=== PATIENT | male | born 1940 | race Caucasian/White ===

== ENCOUNTER → 2016-07-14 | Outpatient (CLI) | payer MEDICARE, OTHER | END | disposition home or self-care (01) | LOC: GMAL 17:25 | PROVIDERS: ATTEND Family Medicine | DX: M25.542 Pain in joints of left hand (principal) ==

== ENCOUNTER → 2016-09-09 | Outpatient (CLI) | payer MEDICARE, OTHER | END | disposition home or self-care (01) | LOC: GMAL 10:41 | PROVIDERS: ATTEND Family Medicine | DX: D51.3 Other dietary vitamin B12 deficiency anemia (principal); Z12.5 Encounter for screening for malignant neoplasm of prostate; E55.9 Vitamin D deficiency, unspecified | CPT/HCPCS: 82306; 82607; G0103 ==

== ENCOUNTER → 2017-03-17 | Outpatient (CLI) | payer MEDICARE, OTHER | END | disposition home or self-care (01) | LOC: GMAL 11:59 | PROVIDERS: ATTEND Family Medicine | DX: N41.0 Acute prostatitis (principal); N41.9 Inflammatory disease of prostate, unspecified ==

== ENCOUNTER → 2018-05-03 | Outpatient (CLI) | payer MEDICARE, OTHER | LOC: GMAL 11:44 | PROVIDERS: ATTEND Family Medicine | DX: D51.3 Other dietary vitamin B12 deficiency anemia (principal); E55.9 Vitamin D deficiency, unspecified; Z12.5 Encounter for screening for malignant neoplasm of prostate | CPT/HCPCS: 82306; 82607; G0103 ==

== ENCOUNTER → 2018-08-04 | Outpatient (CLI) | payer MEDICARE, OTHER ==
--- NOTE | 2018-08-04 16:25 | CT ---
EXAM DESCRIPTION: Soft Tissue Neck w/Contrast CLINICAL HISTORY: LOCALIZED SWELLING, MASS AND LUMP, NECK COMPARISON: None. TECHNIQUE: Postcontrast CT images of the neck are obtained with coronal and sagittal reconstructed images. A marker is placed over the area of palpable abnormality. This exam was performed according to our departmental dose-optimization program, which includes automated exposure control, adjustment of the mA and/or kV according to patient size and/or use of iterative reconstruction technique . FINDINGS: Marker is seen in the region of the right angle of the mandible. The tail of the parotid gland is seen below the marker placed on the right neck with no discrete focal mass or soft tissue abnormality. Mild calcifications of the intracranial carotid arteries are seen left greater than right with areas of mild narrowing. Intracranial structures are otherwise unremarkable. Soft tissue nodularity in the posterior nasopharyngeal region is seen with small right sphenoid sinus air-fluid level. Mild mucosal thickening is seen in the visualized ethmoid air cells with mild mucosal thickening in the maxillary sinuses. Mastoid air cells are unremarkable. Asymmetric soft tissue thickening deep to the right ankle the mandible in the posterior oropharynx is seen with loss of normal fat tissue plane adjacent to the mandible on the right compared to the left. No osseous abnormality. The patient is edentulous. Less than 1 cm right submental lymph nodes are seen. No pathologically enlarged submandibular or cervical chain lymphadenopathy is seen. The epiglottis and vocal cords are unremarkable. Thyroid is unremarkable. Mild scattered calcified plaque of the common carotid artery with moderate calcified plaque of the carotid bulb to proximal internal and external carotid arteries. Visualized lung apices show moderate centrilobular emphysematous changes. Posterior mildly spiculated soft tissue thickening in the left lung apex adjacent to the third rib measures 1.8 x 0.8 cm. Moderate to severe disc space narrowing from C3 through T1 is seen with mild to moderate facet hypertrophic and degenerative changes most significant on the right at C4-5 and left at C3-4. Anterolisthesis of C4 on C5 is seen. At least mild spinal canal stenosis from C4 through C7 is seen with multilevel foraminal encroachment most significant right greater than left at C5-6. IMPRESSION: No cystic or soft tissue mass is seen in the tail of the parotid gland below the marker placed on the right neck at the level of the angle of the mandible. Asymmetric soft tissue thickening and loss of fat tissue plane adjacent to the right mandible at the level of the angle of the mandible raises suspicion for mass or neoplastic process. Recommend correlation with direct visualization and physical exam findings in this region. A 1.8 x 0.8 cm pulmonary nodule in the left lung apex is seen. Neoplastic process is a consideration. Consider CT, PET/CT, or tissue sampling at 3 months. Moderate to severe emphysematous changes to the lung apices are seen. 2017 Fleischner Society Recommendations for Single Solid Lung Nodule Follow-Up based on size (average of long- and short-axis diameters) <6 mm Low-Risk Patient: No routine follow-up <6 mm High-Risk Patient: Optional CT at 12 months 6-8 mm Low-Risk Patient: CT at 6-[address] at 18-24 months 6-8 mm High-Risk Patient: CT at 6-[address] at 18-24 months >8 mm Low-Risk Patient: Consider CT, PET/CT or tissue sampling at 3 months >8 mm High-Risk Patient: Same as for low-risk patient Electronically signed by: Ze Stewart MD 08/04/2018 4:23 PM CDT
== END ==
LOC: CT 10:00
PROVIDERS: ATTEND Otolaryngology
DX: R22.1 Localized swelling, mass and lump, neck (principal); R91.1 Solitary pulmonary nodule; J43.9 Emphysema, unspecified

== ENCOUNTER → 2018-09-27 | Outpatient (CLI) | payer MEDICARE, OTHER ==
--- NOTE | 2018-09-27 16:38 | CT ---
EXAM DESCRIPTION: CT Chest without CONTRAST CLINICAL HISTORY: COPD, PULM EMPHYSEMA, SOLITARY NODULE 1.8 CM, SMOKER COMPARISON: None Available. TECHNIQUE: CT of the chest is performed without intravenous contrast FINDINGS: The thyroid gland is unremarkable. No axillary adenopathy. Diffuse coronary artery calcifications. No pericardial effusion. Diffuse atherosclerotic plaque in the thoracic aorta. No mediastinal adenopathy. No pneumothorax. No pleural effusion. Marked emphysematous changes. No focal consolidation. Redemonstrated left upper lobe subpleural pulmonary nodule measuring 0.9 cm (axial 27), previously 0.9 cm. (Measurement differences due to technique) this nodule demonstrates a round/lobular appearance on the coronal image sequence. Degenerative changes without acute or suspicious osseous abnormality. The chest wall is unremarkable. IMPRESSION: Stable left upper lobe pulmonary nodule. This finding may reflect nodular scarring associated with emphysematous changes, however the lobulated appearance on the coronal image set is suspicious. Recommend evaluation with PET/CT, or tissue sampling. This exam was performed according to our departmental dose-optimization program, which includes automated exposure control, adjustment of the mA and/or kV according to patient size and/or use of iterative reconstruction technique. Electronically signed by: Martínez Burns MD 09/27/2018 4:36 PM CDT
== END ==
LOC: CT 13:37
PROVIDERS: ATTEND Internal Medicine
DX: R91.1 Solitary pulmonary nodule (principal)

== ENCOUNTER → 2019-01-17 | Outpatient (CLI) | payer MEDICARE, OTHER ==
--- NOTE | 2019-01-17 10:49 | CT ---
EXAM DESCRIPTION: Chest w/o Contrast : Computed Tomography. CLINICAL HISTORY: 78 years Male LUNG NODULE COMPARISON: Noncontrast lung CT scan one September 2018. TECHNIQUE: Spiral-axial scans at 5 x 5 mm intervals through the lungs and thorax without IV contrast. 2.5 x 5 mm lung algorithm axial reconstructions. Coronal and sagittal 2.0 Mm reconstructions. Total Exam DLP: 260.36 mGy-cm. This exam was performed according to our departmental dose-optimization program which includes automated exposure control, adjustment of the mA and/or kV according to patient size and/or use of iterative reconstruction technique; to reduce radiation dose to as low as reasonably achievable (ALARA). Nodule measurements under 10 mm are given as mean value of 3 axes diameters. FINDINGS: Lungs and large airways: Dilated airspaces representing blebs and bulla more prevalent in the lung apices and also abutting the mediastinal pleura bilaterally. This extends from the apex to the base. Bulla also in the base of the right upper lobe. More bulla in the left lower lobe in the right. The blebs are mostly uniform and centrilobular distribution. Focal pleural thickening more likely than parenchymal lesion posterior medial left apex; images 4/28 and 4/19, stable. Also stable coronal image 602/92. Bilateral pleural-parenchymal scarring in the lower lobes, inferior lingula, and right middle lobe. No new abnormal nodules or masses. No focal infiltrates. Pleural spaces: Bilateral multifocal thickening. No effusion or calcification. Mediastinum and Anne Marie: Evaluation limited due to lack of IV contrast largest lymph node 8 mm in the azygos region but stable. No dominant solid mass. Great vessels and Heart: Evaluation limited due to lack of IV contrast. Coronary stents and calcifications with atherosclerotic calcifications in the included brachiocephalic vessels and aorta. Soft tissues of neck base, axillae, and chest wall: Evaluation limited due to lack of IV contrast. Bilateral axillary lymph nodes. Upper abdomen: Sludge in the dependent posterior gallbladder stable. Normal size and density of the included adrenal glands and spleen with splenic calcifications. Dense calcification abdominal aorta and major branch vessels included. Stable since the prior study. Osseous structures: Minimal spondylosis in the thoracic spine. Bilateral arthrosis sternoclavicular joints. Minimal arthrosis glenohumeral joints. No lytic or blastic lesions. IMPRESSION: 1. No new nodules or masses and no focal infiltrates. More likely left apical pleural scarring than abnormal nodules and stable over 3 month interval. Stable bilateral emphysematous changes and pleural parenchymal scarring. [facility] Best Practice recommendations: 6-[address] follow-up. Please see below*. *2017 Fleischner Society Recommendations for Single Solid Lung Nodule Follow-Up based on size (average of long- and short-axis diameters) 6-8 mm High-Risk Patient: CT at 6-[address] at 18-24 months Electronically signed by: Redd Herrera MD 01/17/2019 10:47 AM CDT
== END ==
LOC: CT 09:11
PROVIDERS: ATTEND Internal Medicine
DX: R91.1 Solitary pulmonary nodule (principal); J43.9 Emphysema, unspecified

== ENCOUNTER → 2019-09-02 | Outpatient (CLI) | payer MEDICARE, OTHER ==
--- NOTE | 2019-09-05 12:22 | CT ---
EXAM DESCRIPTION: Chest w/o Contrast : Computed Tomography. CLINICAL HISTORY: 78 years Male LUNG NODULE COMPARISON: CT scan of the lungs and thorax December 2018. TECHNIQUE: Spiral-axial scans at 5 x 5 mm intervals through the lungs and thorax without IV contrast. 2.5 x 2.5 mm lung algorithm axial reconstructions. : Sagittal 2.0 Mm reconstructions. Total Exam DLP: 405 mGy-cm. This exam was performed according to our departmental dose-optimization program which includes automated exposure control, adjustment of the mA and/or kV according to patient size and/or use of iterative reconstruction technique; to reduce radiation dose to as low as reasonably achievable (ALARA). Nodule measurements under 10 mm are given as mean value of 3 axes diameters. FINDINGS: Lungs and large airways: Again noted are some pleural bulla at the apices and medially in the right upper lobes and scattered blebs. Large bulla at the base of the right upper lobe abutting the fissure. Pleural parenchymal scarring in the apices inferior lingula right middle lobe and bilateral lower lobes with subpleural bulla in the left lower lobe. Stable appearance of nodule-like spiculated density more likely pleural parenchymal scarring in the posterior medial left apex. No abnormal nodules or masses. No acute infiltrates. Pleural spaces: Pleural parenchymal scarring as previously described. More prominent in the apices. Focal pleural thickening. No interval change. Mediastinum and Anne Marie: Evaluation limited due to lack of IV contrast stable azygous node. Also stable other nodes. Great vessels and Heart: Evaluation limited due to lack of IV contrast. Arthroscopic calcifications in several brachiocephalic vessels, aortic arch and descending thoracic aorta as well as coronary arteries. No change from the prior study. Soft tissues of neck base, axillae, and chest wall: Evaluation limited due to lack of IV contrast. Bilateral axillary nodes unchanged. Upper abdomen: Dense atherosclerotic calcifications of aorta and major branch vessels. Calcification in the spleen and in the lesser sac of the omentum. No free air or free fluid in the included peritoneal space. Radiodense material possibly gravel in the gallbladder. Osseous structures: Degenerative changes in the glenohumeral joints and sternoclavicular joints. Thoracic spondylosis.. Healing right eighth and ninth rib fractures. IMPRESSION: 1. Stable nodule-like lesion posterior left apex most likely pleural parenchymal scarring. No new nodules or masses. No focal or new infiltrates. Stable paraseptal type emphysema bilaterally. Consider optional thoracic CT follow-up in 12 month interval. Electronically signed by: Redd Herrera MD 09/05/2019 12:20 PM CDT
== END ==
LOC: CT 13:06
PROVIDERS: ATTEND Internal Medicine
DX: R91.1 Solitary pulmonary nodule (principal); J43.9 Emphysema, unspecified

== ENCOUNTER → 2020-01-30 | Outpatient (CLI) | payer MEDICARE, OTHER | LOC: LAB.NP 11:01 | PROVIDERS: ATTEND Family Medicine | DX: D51.3 Other dietary vitamin B12 deficiency anemia (principal); E55.9 Vitamin D deficiency, unspecified; R53.83 Other fatigue; E78.2 Mixed hyperlipidemia; Z79.899 Other long term (current) drug therapy ==